=== PATIENT | female | born 1960 | race Caucasian/White ===

== ENCOUNTER → 2017-04-10 | Outpatient (CLI) | payer BC, OTHER | END | disposition home or self-care (01) | LOC: KCIC MRI 10:36 | DX: I08.1 Rheumatic disorders of both mitral and tricuspid valves (principal); I27.20 Pulmonary hypertension, unspecified | CPT/HCPCS: 72141 ==

== ENCOUNTER → 2018-05-15 | Outpatient (CLI) | payer BC, OTHER ==
[~2018-05-15] MED LIST: BUPR75TA5 PO; PANT20TA2 PO
--- NOTE | 2018-05-15 17:07 | KCIC ---
Bilateral digital screening mammograms with 3-D tomosynthesis: Reason for examination: Routine screening. Comparison is made to previous study dated 07/17/2014. Bilateral mammograms in CC and oblique projections were obtained with 2-D imaging and 3-D tomosynthesis imaging on a Siemens Inspiration unit and reviewed on the workstation. Interpretation was made with the benefit of CAD. The skin and nipples show no abnormalities. No abnormal axillary lymph nodes are seen. The breast parenchyma is heterogeneously dense. (Breast density: Category C.) There are nodular densities seen bilaterally at the 6:00 C position of the right breast and 6:00 B position of the left breast. Recommend further evaluation with ultrasound. There are no other dominant masses, suspicious calcifications or architectural distortion. Impression: Nodular densities at the 6:00 C position of the right breast and 6:00 B position of the left breast. Recommend further evaluation with ultrasound. Your patient's mammogram demonstrates that she has dense breast tissue (breast density category C or D), which could hide abnormalities, and if she has other risk factors for breast cancer that have been identified, she might benefit from supplemental screening tests that may be suggested by you as her ordering physician. Dense breast tissue, in and of itself, is a relatively common condition. Therefore, this information is not provided to cause undue concern, but rather to raise your awareness and to promote discussion with your patient regarding the presence of other risk factors, in addition to dense breast tissue. Your patient's mammography results will be sent to her. BI-RAD Category 0: Incomplete. Needs additional imaging evaluation. "Our facility is accredited by the [employer] Mammography [employer]." This patient's information has been entered into a reminder system for the patient to be notified with the results of her examination and a target date for the next mammogram. Electronically signed by: Meg Interiano MD (05/15/2018 5:03 PM) [id number]
== END | disposition home or self-care (01) ==
LOC: KCIC MAMMO 12:33
PROVIDERS: ATTEND Obstetrics & Gynecology
DX: Z12.31 Encounter for screening mammogram for malignant neoplasm of breast (principal)
CPT/HCPCS: 77063; 77067

== ENCOUNTER → 2018-05-23 | Outpatient (CLI) | payer BC ==
--- NOTE | 2018-05-23 15:48 | KCIC ---
Bilateral breast ultrasound: Reason for examination: Nodular densities on screening mammogram. Comparison is made to mammographic exam dated 05/15/2018. Ultrasound examination was performed bilaterally in the areas of mammographic concern and at the axilla. In the right breast at the 6:00 position 3 cm from the nipple, there is a 7.4 mm hypoechoic circumscribed lesion with posterior acoustic enhancement. The appearance would be consistent with a cyst probably containing some debris. No vascular flow is seen. No other focal nodules are seen. No abnormal appearing lymph nodes are seen in the right axilla. In the left breast at the 6:00 position 4 cm from the nipple, there is a hypoechoic circumscribed lesion measuring 5 mm in greatest dimension. This probably represents a complicated cyst with some posterior acoustic enhancement. No other cystic or solid lesions are seen. No abnormal appearing lymph nodes are seen in the axilla. IMPRESSION: Small hypoechoic nodules seen bilaterally corresponding to the areas of mammographic concern and probably represent small complicated cysts. Recommend 6 month sonographic follow-up. BI-RADS Category 3: Probably Benign. "Our facility is accredited by the [employer] Mammography [employer]." This patient's information has been entered into a reminder system for the patient to be notified with the results of her examination and a target date for the next mammogram. Electronically signed by: Meg Interiano MD (05/23/2018 3:45 PM) [id number]
== END | disposition home or self-care (01) ==
LOC: KCIC US 12:57
PROVIDERS: ATTEND Obstetrics & Gynecology
DX: N64.89 Other specified disorders of breast (principal)
CPT/HCPCS: 76641